=== PATIENT | male | born 1975 | race Caucasian/White ===

== ENCOUNTER 2018-09-17 09:22 | Emergency (ER) | payer OTHER, MEDICAID ==
[2018-09-17] MEDS ORDERED: NS 1,000 ML IV ONE (09:28)
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
[2018-09-17 09:41] LABS: PLATELET COUNT 314 10^3/uL (150-400)
[2018-09-17 09:49] LABS: INR 0.95 (0.83-1.16); PROTIME(PATIENT) 12.9 SEC (12.0-15.0)
[2018-09-17] MEDS ORDERED: IOPAMIDOL (ISOVUE-300) 100 ML BTL ONE (10:15)
[2018-09-17 12:24] VITALS: BP 130/98
== END 2018-09-17 12:24 | disposition home or self-care (01) ==
LOC: EDUNIT#
DX: S02.2XXA Fracture of nasal bones, initial encounter for closed fracture (principal); H57.04 Mydriasis; E86.9 Volume depletion, unspecified; M54.5 Low back pain; G89.29 Other chronic pain; V49.49XA Driver injured in collision with other motor vehicles in traffic accident, initial encounter; Y92.410 Unspecified street and highway as the place of occurrence of the external cause; Y93.9 Activity, unspecified
CPT/HCPCS: 80305; G0480; Q9967